=== PATIENT | female | born 1980 | race Caucasian/White ===

== ENCOUNTER 2016-10-10 20:07 | Emergency (ER) | payer MEDICAID, OTHER ==
[~2016-10-10] VITALS: Ht 157.5 cm; Wt 59.0 kg
[2016-10-10] MEDS ORDERED: IBUPROFEN 600MG TABLET PO ONE (23:30)
[2016-10-10 23:42] VITALS: BP 126/83
== END 2016-10-10 23:43 | disposition home or self-care (01) ==
LOC: ER 22:29
DX: B02.8 Zoster with other complications (principal)
CPT/HCPCS: 99283; X7700; Z7610